=== PATIENT | female | born 1960 | race American Indian/Alaskan Native ===

== ENCOUNTER 2019-03-30 03:36 | Emergency (ER) | payer MEDICAID ==
[2019-03-30 05:14] LABS: Basophils % (Auto) 0.8 % (0.0-1.8); Eosinophils % (Auto) 0.5 % (0.0-4.3); Hematocrit 41.9 % (30.3-42.9); Hemoglobin 14.2 gm/dl (10.1-14.3); Lymphocytes # (Auto) 1.4 K/mm3 (1.2-5.4); Lymphocytes % (Auto) 31.1 % (13.4-35.0); Mean Corpuscular HGB Conc 34 % (30-34); Mean Corpuscular Volume 96 fl (79-97); Monocytes # (Auto) 0.1 K/mm3 (0.0-0.8); Monocytes % (Auto) 3.1 % (0.0-7.3); Platelet Count 199 K/mm3 (140-440); Red Blood Count 4.35 M/mm3 (3.65-5.03); Red Cell Distribution Width 16.3 % (13.2-15.2)
[2019-03-30 05:21] LABS: Bilirubin,Urine NEG (Negative); Blood,Urine NEG (Negative); Color,Urine Yellow (Yellow); Protein,Urine <15 mg/dL mg/dL (Negative); Urobilinogen,Urine < 2.0 mg/dL (<2.0)
[2019-03-30 05:26] LABS: BUN/Creatinine Ratio 16; Blood Urea Nitrogen 16 mg/dL (7-17); Calcium 9.1 mg/dL (8.4-10.2); Hemolysis Index 219
[2019-03-30 05:28] LABS: Amphetamine Screen,Urine PRESUMPTIVE NEGATIVE; Benzodiazepines Screen,Urine PRESUMPTIVE NEGATIVE; Cocaine Screen,Urine PRESUMPTIVE NEGATIVE; Methadone Screen,Urine PRESUMPTIVE NEGATIVE; Opiate Screen,Urine PRESUMPTIVE NEGATIVE
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
[2019-03-30] MEDS ORDERED: DILANTIN PO ONE (05:34)
[2019-03-30 05:43] LABS: Cannabinoid Screen,Urine PRESUMPTIVE POSITIVE
[2019-03-30] MEDS: SYNTHROID PO SCH (11:00)
--- NOTE | 2019-03-30 15:16 | Emergency Department Report ---
Blank Doc - Documentation Documentation: RN reports pt fell onto the floor from bedside commode. Now has hematoma to f orehead. No mental status change. Will obtain CT Head.
--- NOTE | 2019-03-30 16:04 | Cat Scan Report ---
PROCEDURE: CT HEAD/BRAIN WO CON TECHNIQUE: Computerized tomography of the head was performed without contrast material. CT DOSE LENGTH PRODUCT: 1046.1 mGycm HISTORY: fall COMPARISONS: None . FINDINGS: Nonspecific 6 mm x 39 mm fatty lesion in right frontal scalp region suggestive of lipoma. Right vertex region scalp swelling with small scalp hematoma. Adjacent skull appears intact. No acute air-fluid level visualized in the included air-filled sinuses. Bone windows demonstrate no acute fracture. The brain is without mass, mass effect, hemorrhage, or acute infarct. There is no extra-axial intracranial bleed, brain bleed, or midline shift. The ventricles and sulci are age-appropriate. 

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
[2019-03-31] MEDS: SYNTHROID PO SCH (07:06)
[2019-03-31 12:35] LABS: Bacteria,Urine 1+ /HPF (Negative); Bilirubin,Urine NEG (Negative); Blood,Urine SM (Negative); Color,Urine Yellow (Yellow); Protein,Urine <15 mg/dL mg/dL (Negative); Urobilinogen,Urine < 2.0 mg/dL (<2.0)
[2019-03-31 12:42] LABS: Amphetamine Screen,Urine PRESUMPTIVE NEGATIVE; Benzodiazepines Screen,Urine PRESUMPTIVE NEGATIVE; Cocaine Screen,Urine PRESUMPTIVE NEGATIVE; Methadone Screen,Urine PRESUMPTIVE NEGATIVE; Opiate Screen,Urine PRESUMPTIVE NEGATIVE
[2019-03-31 13:03] LABS: Cannabinoid Screen,Urine PRESUMPTIVE POSITIVE
[2019-04-01] MEDS: SYNTHROID PO SCH (06:54)
[2019-04-01 13:56] VITALS: BP 138/86
== END 2019-04-01 16:45 ==
LOC: EEVIPCON 03:36 → ED 03:36
DX: S00.83XA Contusion of other part of head, initial encounter (principal); G40.909 Epilepsy, unspecified, not intractable, without status epilepticus; F31.9 Bipolar disorder, unspecified; J45.909 Unspecified asthma, uncomplicated; F17.200 Nicotine dependence, unspecified, uncomplicated; F12.10 Cannabis abuse, uncomplicated; W19.XXXA Unspecified fall, initial encounter; Y93.89 Activity, other specified; Y92.89 Other specified places as the place of occurrence of the external cause; Y99.8 Other external cause status
CPT/HCPCS: 36415; 70450; 80048; 80164; 80185; 80307; 81001; 82962; 85025; 87086; 99285; G0480; 80320

== ENCOUNTER 2019-04-13 10:35 | Emergency (ER) | payer MEDICAID ==
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
[2019-04-13] MEDS ORDERED: HALDOL IM PRN (11:59)
[2019-04-13] MEDS ORDERED: ATIVAN IM PRN (11:59)
[2019-04-13] MEDS ORDERED: BENADRYL IM PRN (11:59)
[2019-04-13 13:48] LABS: Alanine Aminotransferase 10 units/L (7-56); Albumin 3.5 g/dL (3.9-5); BUN/Creatinine Ratio 14; Blood Urea Nitrogen 11 mg/dL (7-17); Calcium 8.5 mg/dL (8.4-10.2); Hemolysis Index 18
[2019-04-13 13:55] LABS: Free T4 (Free Thyroxine) 0.45 ng/dL (0.76-1.46)
[2019-04-13 14:11] LABS: Basophils % (Auto) 0.7 % (0.0-1.8); Eosinophils % (Auto) 0.4 % (0.0-4.3); Hematocrit 35.7 % (30.3-42.9); Hemoglobin 11.8 gm/dl (10.1-14.3); Lymphocytes # (Auto) 1.2 K/mm3 (1.2-5.4); Lymphocytes % (Auto) 28.2 % (13.4-35.0); Mean Corpuscular HGB Conc 33 % (30-34); Mean Corpuscular Volume 98 fl (79-97); Monocytes # (Auto) 0.4 K/mm3 (0.0-0.8); Monocytes % (Auto) 9.9 % (0.0-7.3); Platelet Count 189 K/mm3 (140-440); Red Blood Count 3.64 M/mm3 (3.65-5.03); Red Cell Distribution Width 16.5 % (13.2-15.2)
[2019-04-13 16:16] LABS: Bilirubin,Urine NEG (Negative); Blood,Urine NEG (Negative); Color,Urine Yellow (Yellow); Mucus,Urine FEW /HPF; Protein,Urine <15 mg/dL mg/dL (Negative); Urobilinogen,Urine < 2.0 mg/dL (<2.0)
[2019-04-13 16:34] LABS: Amphetamine Screen,Urine PRESUMPTIVE NEGATIVE; Benzodiazepines Screen,Urine PRESUMPTIVE NEGATIVE; Cocaine Screen,Urine PRESUMPTIVE NEGATIVE; Methadone Screen,Urine PRESUMPTIVE NEGATIVE; Opiate Screen,Urine PRESUMPTIVE NEGATIVE
[2019-04-13 17:01] LABS: Cannabinoid Screen,Urine PRESUMPTIVE POSITIVE
[2019-04-13] MEDS ORDERED: LEVAQUIN PO SCH (18:00)
[2019-04-14] MEDS ORDERED: SYNTHROID PO SCH (06:00)
[2019-04-14 09:13] VITALS: BP 134/70
--- NOTE | 2019-04-14 10:39 | Cat Scan Report ---
PROCEDURE: CT HEAD/BRAIN WO CON TECHNIQUE: A noncontrast CT of the head was performed. HISTORY: ams, psychosis COMPARISON: 03/30/2019 FINDINGS: There is no acute intracranial hemorrhage. There is no brain edema, mass effect or midline shift. Ventricular size is appropriate for brain volume. There is no abnormal extra-axial fluid collections. There is no skull fracture seen. There is an unchanged right frontal scalp lipoma. The visualized paranasal sinuses are clear. IMPRESSION: There is no acute intracranial abnormality seen. This document is electronically signed by Karly Townsend MD., April 14 2019 10:38:16 AM ET
--- NOTE | 2019-04-14 11:42 | Consultation ---
History of Present Illness - Reason for Consult Consult date: 04/14/19 Reason for consult: Mental Health Evaluation Requesting physician: CELIA VARGAS - Chief Complaint Chief complaint: "I'm having issues with my family" - History of Present Psychiatric Illness 58 y.o. AA female who presented to the ER for bizarre behavior. Today the patient was calm, but somewhat confused initially during the assessment. She stated something about her son and his told her to come to the ER. She could not elaborate more about the situation when asked. Per collateral information from the patient's other son Valdemar Carl at [phone], he stated that his mother is somewhat homeless. He stated that she was residing with his brother and [id number], but something happened, so now he's trying to find his mother somewhere to live. He stated that he currently is residing in a hotel. He stated that his mother has a hx of "seizures and stress issues." The patient denies SI/HI's and AVH's. She denies erratic sleep and a poor appetite. She denies recreational drug use and alcohol consumption (etoh). The patient would not conform or deny a mental health dx when asked. Medications and Allergies Allergies Allergy/AdvReac Type Severity Reaction Status Date / Time No Known Allergies Allergy Verified 04/13/19 10:37 Home Medications Medication Instructions Recorded Confirmed Last Taken Type Divalproex ER [DepaKOTE ER] 1,000 mg PO BID 03/30/19 03/30/19 Unknown History Levothyroxine [Synthroid] 100 mcg PO QAM 03/30/19 03/30/19 Unknown History OLANzapine [ZyPREXA] 10 mg PO QHS 03/30/19 03/30/19 Unknown History Active Meds: Active Medications Diphenhydramine HCl (Benadryl) 50 mg IM Q6H PRN PRN Reason: Agitation Levofloxacin (Levaquin) 250 mg PO Q24H [facility] Last Admin: 04/13/19 20:00 Dose: 250 mg Documented by: Levothyroxine Sodium (Synthroid) 100 mcg PO QAM@0600 [facility] Lorazepam (Ativan) 2 mg IM Q8H PRN PRN Reason: Agitation Last Admin: 04/13/19 12:07 Dose: 2 mg Documented by: Past psychiatric history - Past Medical History Past Medical History: seizures Past Surgical History: No surgical history - past Psychiatric treatment and history psychiatric treatment history: Inpatientpsy services in the past. Denies a fam psy services. - Social History Social history: lives with family Mental Status Exam - Vital signs Last Vital Signs Temp 97.6 F 04/14/19 09:11 Pulse 69 04/14/19 09:11 Resp 18 04/14/19 09:11 BP 134/70 04/14/19 09:11 Pulse Ox 100 04/14/19 09:11 - Exam Narrative exam: MSE: Appearance: calm Behavior: regular eye contact Speech: regular rate and tone Mood: "okay" Affect: congruent to mood Thought Process: circumstantial Thought Content: denies SI/HI's and AVH's Motor Activity: ambulatory Cognition: slight confusion Insight: variable to fair Judgment: fair Results Result Diagrams: 04/13/19 13:15 04/13/19 13:15 Abnormal lab results 04/13/19 04/13/19 04/13/19 Range/Units 13:15 13:15 13:15 WBC 4.3 L (4.5-11.0) K/mm3 RBC 3.64 L (3.65-5.03) M/mm3 MCV 98 H (79-97) fl MCH 33 H (28-32) pg RDW 16.5 H (13.2-15.2) % [place] % (Auto) 9.9 H (0.0-7.3) % Potassium 3.4 L (3.6-5.0) mmol/L Glucose 109 H (65-100) mg/dL Albumin 3.5 L (3.9-5) g/dL TSH 22.060 H (0.270-4.200) mlU/mL Free T4 0.45 L (0.76-1.46) ng/dL Urine WBC (Auto) (0.0-6.0) /HPF Salicylates (2.8-20.0) mg/dL Acetaminophen (10.0-30.0) ug/mL Phenytoin (10.0-20.0) ug/mL Valproic Acid (50-100) ug/mL 04/13/19 04/13/19 04/13/19 Range/Units 13:15 13:15 16:03 WBC (4.5-11.0) K/mm3 RBC (3.65-5.03) M/mm3 MCV (79-97) fl MCH (28-32) pg RDW (13.2-15.2) % [place] % (Auto) (0.0-7.3) % Potassium (3.6-5.0) mmol/L Glucose (65-100) mg/dL Albumin (3.9-5) g/dL TSH (0.270-4.200) mlU/mL Free T4 (0.76-1.46) ng/dL Urine WBC (Auto) 23.0 H (0.0-6.0) /HPF Salicylates < 0.3 L (2.8-20.0) mg/dL Acetaminophen < 5.0 L (10.0-30.0) ug/mL Phenytoin (10.0-20.0) ug/mL Valproic Acid < 2.8 L (50-100) ug/mL 04/14/19 Range/Units 08:10 WBC (4.5-11.0) K/mm3 RBC (3.65-5.03) M/mm3 MCV (79-97) fl MCH (28-32) pg RDW (13.2-15.2) % [place] % (Auto) (0.0-7.3) % Potassium (3.6-5.0) mmol/L Glucose (65-100) mg/dL Albumin (3.9-5) g/dL TSH (0.270-4.200) mlU/mL Free T4 (0.76-1.46) ng/dL Urine WBC (Auto) (0.0-6.0) /HPF Salicylates (2.8-20.0) mg/dL Acetaminophen (10.0-30.0) ug/mL Phenytoin 0.9 L (10.0-20.0) ug/mL Valproic Acid (50-100) ug/mL All other labs normal. Assessment and Plan Assessment and plan: Impression: R/O Delirium. Family Dynamic issues. Today the patient was calm during the assessment. Medical: UTI Recommendation/Plan: Case Mgmt involvement, the patient may need assistance with placement. Informed the patient's assigned nurse that the patient has a hx of seizures. Psy sign off. Dispo: The patient can follow uo with [facility] for outpatient psy services. Staffed with Dr. Papito Ramirez.
[2019-04-14] MEDS ORDERED: DILANTIN PO SCH (22:00)
== END 2019-04-14 17:02 | disposition left against medical advice (07) ==
LOC: ED 10:35
DX: F20.9 Schizophrenia, unspecified (principal); E11.9 Type 2 diabetes mellitus without complications; J45.909 Unspecified asthma, uncomplicated; Z87.891 Personal history of nicotine dependence; Z79.899 Other long term (current) drug therapy
CPT/HCPCS: 36415; 70450; 80053; 80164; 80185; 80307; 81001; 84439; 84443; 85025; 87076; 87086; 87186; 96372; 99285; G0480; J1200; J1630; J2060; 80320

== ENCOUNTER 2020-08-04 10:32 | Emergency (ER) | payer MEDICAID ==
[2020-08-04 10:59] VITALS: BP 163/97
--- NOTE | 2020-08-04 12:19 | Emergency Department Report ---
ED General Adult HPI - General Chief complaint: Medical Clearance Stated complaint: BACK PAIN, DIZZINESS Time Seen by Provider: 08/04/20 11:45 Source: patient Mode of arrival: Ambulatory Limitations: No Limitations - Related Data Previous Rx's Medication Instructions Recorded Last Taken Type Ciprofloxacin HCl [Ciprofloxacin 500 mg PO Q12HR #10 tab 07/06/20 Unknown Rx TAB] levETIRAcetam [Keppra] 750 mg PO BID #60 oral.liqd 07/06/20 Unknown Rx Divalproex ER [Depakote ER] 1,000 mg PO BID 60 Days #60 tab 08/04/20 Unknown Rx Gabapentin 300 mg PO TID 30 Days #90 cap 08/04/20 Unknown Rx Levothyroxine [Synthroid] 100 mcg PO QAM 30 Days #30 tab 08/04/20 Unknown Rx OLANzapine [ZyPREXA] 2.5 mg PO HS 30 Days #30 tab 08/04/20 Unknown Rx hydrALAZINE [Apresoline TAB] 25 mg PO Q8HR #90 tablet 08/04/20 Unknown Rx Allergies Allergy/AdvReac Type Severity Reaction Status Date / Time No Known Allergies Allergy Verified 04/13/19 10:37 ED Review of Systems ROS: Stated complaint: BACK PAIN, DIZZINESS Other details as noted in HPI ED Past Medical Hx - Past Medical History Hx Diabetes: Yes Hx Seizures: Yes Hx Psychiatric Treatment: Yes (schizophrenia) Hx Asthma: Yes - Surgical History Additional Surgical History: Patient states she cannot remember what sx - Social History Smoking Status: Never Smoker - Medications Home Medications: Home Medications Medication Instructions Recorded Confirmed Last Taken Type Ciprofloxacin HCl [Ciprofloxacin 500 mg PO Q12HR #10 tab 07/06/20 Unknown Rx TAB] levETIRAcetam [Keppra] 750 mg PO BID #60 oral.liqd 07/06/20 Unknown Rx Divalproex ER [Depakote ER] 1,000 mg PO BID 60 Days #60 tab 08/04/20 Unknown Rx Gabapentin 300 mg PO TID 30 Days #90 cap 08/04/20 Unknown Rx Levothyroxine [Synthroid] 100 mcg PO QAM 30 Days #30 tab 08/04/20 Unknown Rx OLANzapine [ZyPREXA] 2.5 mg PO HS 30 Days #30 tab 08/04/20 Unknown Rx hydrALAZINE [Apresoline TAB] 25 mg PO Q8HR #90 tablet 08/04/20 Unknown Rx ED Physical Exam - General Limitations: No Limitations ED Course Vital Signs 08/04/20 10:56 Temperature 98.0 F Pulse Rate 81 Respiratory 18 Rate Blood Pressure 163/97 O2 Sat by Pulse 97 Oximetry Critical care attestation.: If time is entered above; I have spent that time in minutes in the direct care of this critically ill patient, excluding procedure time. ED Disposition Clinical Impression: Encounter for medication refill, T2DM (type 2 diabetes mellitus), Hypothyroidism Disposition: DC- TO HOME OR SELFCARE Is pt being admited?: No Condition: Stable Instructions: Diabetes Mellitus Type 2 in Adults (ED) Prescriptions: hydrALAZINE [Apresoline TAB] 25 mg PO Q8HR #90 tablet Divalproex ER [Depakote ER] 1,000 mg PO BID 60 Days #60 tab Gabapentin 300 mg PO TID 30 Days #90 cap Levothyroxine [Synthroid] 100 mcg PO QAM 30 Days #30 tab OLANzapine [ZyPREXA] 2.5 mg PO HS 30 Days #30 tab
== END 2020-08-04 13:43 | disposition home or self-care (01) ==
LOC: ED 10:32
DX: E11.69 Type 2 diabetes mellitus with other specified complication (principal); E03.9 Hypothyroidism, unspecified; Z86.69 Personal history of other diseases of the nervous system and sense organs; F20.9 Schizophrenia, unspecified; J45.909 Unspecified asthma, uncomplicated; Z79.899 Other long term (current) drug therapy
CPT/HCPCS: 99281

== ENCOUNTER 2021-09-16 10:17 | Emergency (ER) | payer MEDICAID ==
[2021-09-16] MEDS ORDERED: DIVALPROEX DR 500 MG TAB PO ONE (10:58)
[2021-09-16] MEDS ORDERED: LORazepam 2 MG/ML VIAL IV ONE (12:40)
[2021-09-16 13:13] LABS: BUN/Creatinine Ratio TNR; Blood Urea Nitrogen TNR mg/dL (7-17); Calcium TNR mg/dL (8.4-10.2)
[2021-09-16 13:14] LABS: Hemolysis Index TNR
[2021-09-16] MEDS ORDERED: PHENYTOIN 1,000 MG in SODIUM CHLORIDE 0.9% 250ML 250 ML IV ONE (14:17)
--- NOTE | 2021-09-16 14:38 | Emergency Department Report ---
<ALLISON FUENTES - Last Filed: 09/16/21 14:32> ED Seizure HPI - General Chief Complaint: Seizure Stated Complaint: seizure Time Seen by Provider: 09/16/21 10:58 Source: patient Mode of arrival: Stretcher Limitations: No Limitations - History of Present Illness Initial Comments: Patient is a 61-year-old F [place]ian female with past medical history of seizures who is presenting with seizure prior to arrival. Patient still slightly postictal on arrival. Patient states she does take Dilantin and Depakote has been out of her Dilantin. States she does not believe she has missed any doses of her Depakote. Patient states she does not feel any pain in her tongue there was no urinary incontinence. Mild headache. - Related Data Previous Rx's Medication Instructions Recorded Last Taken Type Ciprofloxacin HCl [Ciprofloxacin 500 mg PO Q12HR #10 tab 07/06/20 Unknown Rx TAB] levETIRAcetam [Keppra] 750 mg PO BID #60 oral.liqd 07/06/20 Unknown Rx Divalproex ER [Depakote ER] 1,000 mg PO BID 60 Days #60 tab 08/04/20 Unknown Rx Gabapentin 300 mg PO TID 30 Days #90 cap 08/04/20 Unknown Rx OLANzapine [ZyPREXA] 2.5 mg PO HS 30 Days #30 tab 08/04/20 Unknown Rx hydrALAZINE [Apresoline TAB] 25 mg PO Q8HR #90 tablet 08/04/20 Unknown Rx Divalproex ER [DepaKOTE ER] 500 mg PO BID #60 tablet 09/16/21 Unknown Rx Levothyroxine [Synthroid] 100 mcg PO QAM 30 Days #30 tab 09/16/21 Unknown Rx Phenytoin [Dilantin] 100 mg PO Q8HR #90 capsule 09/16/21 Unknown Rx Allergies Allergy/AdvReac Type Severity Reaction Status Date / Time No Known Allergies Allergy Verified 04/13/19 10:37 ED Review of Systems Comment: All other systems reviewed and negative ED Past Medical Hx - Past Medical History Hx Diabetes: Yes Hx Seizures: Yes Hx Psychiatric Treatment: Yes (schizophrenia) Hx Asthma: Yes - Surgical History Additional Surgical History: Patient states she cannot remember what sx - Social History Smoking Status: Never Smoker - Medications Home Medications: Home Medications Medication Instructions Recorded Confirmed Last Taken Type Ciprofloxacin HCl [Ciprofloxacin 500 mg PO Q12HR #10 tab 07/06/20 Unknown Rx TAB] levETIRAcetam [Keppra] 750 mg PO BID #60 oral.liqd 07/06/20 Unknown Rx Divalproex ER [Depakote ER] 1,000 mg PO BID 60 Days #60 tab 08/04/20 Unknown Rx Gabapentin 300 mg PO TID 30 Days #90 cap 08/04/20 Unknown Rx OLANzapine [ZyPREXA] 2.5 mg PO HS 30 Days #30 tab 08/04/20 Unknown Rx hydrALAZINE [Apresoline TAB] 25 mg PO Q8HR #90 tablet 08/04/20 Unknown Rx Divalproex ER [DepaKOTE ER] 500 mg PO BID #60 tablet 09/16/21 Unknown Rx Levothyroxine [Synthroid] 100 mcg PO QAM 30 Days #30 tab 09/16/21 Unknown Rx Phenytoin [Dilantin] 100 mg PO Q8HR #90 capsule 09/16/21 Unknown Rx ED Physical Exam - General Limitations: No Limitations General appearance: alert, in no apparent distress, postictal - Head Head exam: Present: atraumatic, normocephalic - Eye Eye exam: Present: normal appearance - ENT ENT exam: Present: mucous membranes moist - Neck Neck exam: Present: normal inspection - Respiratory Respiratory exam: Present: normal lung sounds bilaterally. Absent: respiratory distress - Cardiovascular Cardiovascular Exam: Present: regular rate, normal rhythm. Absent: systolic murmur, diastolic murmur, rubs, gallop - GI/Abdominal GI/Abdominal exam: Present: soft, normal bowel sounds - Extremities Exam Extremities exam: Present: normal inspection - Back Exam Back exam: Present: normal inspection - Neurological Exam Neurological exam: Present: alert, oriented X3 - Psychiatric Psychiatric exam: Present: normal affect, normal mood - Skin Skin exam: Present: warm, dry, intact, normal color. Absent: rash ED Course - Reevaluation(s) Reevaluation #1: 09/16/21 14:34 Patient was recovering at almost returned to her baseline she had got up and w ent to the bathroom and then had a seizure. Patient was lowered to the ground by nursing staff. No evidence of any injury. Given 1 of Ativan. Approximately 15 to 20 minutes after this the patient's Dilantin level did return and was low. Patient will be loaded with Dilantin. We will continue to monitor the patient ED Medical Decision Making - Lab Data Result diagrams: 09/16/21 12:06 Lab Results 09/16/21 09/16/21 Range/Units 12:06 12:06 Sodium TNR Potassium TNR Chloride TNR Carbon Dioxide TNR Anion Gap TNR BUN TNR Creatinine TNR Estimated GFR TNR BUN/Creatinine Ratio TNR Glucose TNR Calcium TNR Phenytoin 0.8 L (10.0-20.0) ug/mL - Medical Decision Making Patient is a 61-year-old F [place]ian female who is here for seizures. Patient has a subtherapeutic Dilantin level and admits that he is she has not been using her Depakote. Patient loaded with a gram of Dilantin. Refills will be given. Will monitor patient if she is no longer postictal. Patient should be stable for discharge. ED Disposition Disposition: 01 HOME / SELF CARE / HOMELESS Is pt being admited?: No Does the pt Need Aspirin: No Condition: Stable Instructions: Epilepsy, [id number] Prescriptions: Divalproex ER [DepaKOTE ER] 500 mg PO BID #60 tablet Phenytoin [Dilantin] 100 mg PO Q8HR #90 capsule Levothyroxine [Synthroid] 100 mcg PO QAM 30 Days #30 tab Referrals: PRIMARY CARE, [Primary Care Provider] - 3-5 Days <ROGELIO CARL - Last Filed: 09/16/21 18:38> ED Review of Systems ROS: Stated complaint: seizure Other details as noted in HPI ED Course Vital Signs 09/16/21 10:47 Temperature 99.1 F Pulse Rate 71 Respiratory 16 Rate Blood Pressure 130/82 [Left] O2 Sat by Pulse 98 Oximetry ED Medical Decision Making - Lab Data Result diagrams: 09/16/21 12:06 09/16/21 12:06 - Medical Decision Making Addendum by Rogelio Carl MD Reevaluation of the patient at 6:15 PM shows that she is alert and oriented x3 she is able to answer questions appropriately. She is no longer postictal. She will be discharged in the care of her family. Critical care attestation.: If time is entered above; I have spent that time in minutes in the direct care of this critically ill patient, excluding procedure time.
[2021-09-16 16:56] LABS: Hematocrit 36.3 % (30.3-42.9); Hemoglobin 11.6 gm/dl (10.1-14.3); Mean Corpuscular HGB Conc 32 % (30-34); Mean Corpuscular Volume 97 fl (79-97); Platelet Count 214 K/mm3 (140-440); Red Blood Count 3.74 M/mm3 (3.65-5.03); Red Cell Distribution Width 14.8 % (13.2-15.2)
[2021-09-17 12:07] VITALS: BP 134/79
== END 2021-09-17 12:07 | disposition home or self-care (01) ==
LOC: ED 10:17
DX: R56.9 Unspecified convulsions (principal); E11.9 Type 2 diabetes mellitus without complications; F20.9 Schizophrenia, unspecified; J45.909 Unspecified asthma, uncomplicated; Z79.899 Other long term (current) drug therapy
CPT/HCPCS: 36415; 80048; 80185; 85025; 96365; 96366; 96375; 99284; J1165; J7050

== ENCOUNTER 2021-10-31 10:20 | Emergency (ER) | payer MEDICAID ==
[2021-10-31 11:38] VITALS: BP 179/96
[2021-10-31] MEDS ORDERED: cloNIDine 0.1 MG TAB PO ONE (13:23)
--- NOTE | 2021-10-31 13:25 | Emergency Department Report ---
ED General Adult HPI - General Chief complaint: High BP Stated complaint: BLOOD PRESSURE HIGH Time Seen by Provider: 10/31/21 11:47 Source: patient Mode of arrival: Ambulatory Limitations: No Limitations - History of Present Illness Initial comments: 29 DUE TO THE SON WAS IN MSE 7 AND THE PATIENT IS SPEAKING WITH THE NURSE REGARDING THE SOCIAL SERVICE ISSUES FROM HOME. THE PATIENT STATES THEY CURRENTLY LIVE IN A HOTEL AND ARE GETTING READY TO BE EVICTED AND THATS WHY THEY CAME TO THE ER TODAY. -: month(s) - Related Data Previous Rx's Medication Instructions Recorded Last Taken Type Ciprofloxacin HCl [Ciprofloxacin 500 mg PO Q12HR #10 tab 07/06/20 Unknown Rx TAB] levETIRAcetam [Keppra] 750 mg PO BID #60 oral.liqd 07/06/20 Unknown Rx Divalproex ER [Depakote ER] 1,000 mg PO BID 60 Days #60 tab 08/04/20 Unknown Rx Gabapentin 300 mg PO TID 30 Days #90 cap 08/04/20 Unknown Rx OLANzapine [ZyPREXA] 2.5 mg PO HS 30 Days #30 tab 08/04/20 Unknown Rx hydrALAZINE [Apresoline TAB] 25 mg PO Q8HR #90 tablet 08/04/20 Unknown Rx Divalproex ER [DepaKOTE ER] 500 mg PO BID #60 tablet 09/16/21 Unknown Rx Levothyroxine [Synthroid] 100 mcg PO QAM 30 Days #30 tab 09/16/21 Unknown Rx Phenytoin [Dilantin] 100 mg PO Q8HR #90 capsule 09/16/21 Unknown Rx Allergies Allergy/AdvReac Type Severity Reaction Status Date / Time No Known Allergies Allergy Verified 04/13/19 10:37 ED Review of Systems ROS: Stated complaint: BLOOD PRESSURE HIGH Other details as noted in HPI Constitutional: denies: chills, fever Eyes: denies: eye pain, eye discharge, vision change ENT: denies: ear pain, throat pain Respiratory: denies: cough, shortness of breath, wheezing Cardiovascular: denies: chest pain, palpitations Endocrine: no symptoms reported Gastrointestinal: denies: abdominal pain, nausea, diarrhea Genitourinary: denies: urgency, dysuria, discharge Musculoskeletal: denies: back pain, joint swelling, arthralgia Skin: denies: rash, lesions Neurological: denies: headache, weakness, paresthesias Psychiatric: denies: anxiety, depression Hematological/Lymphatic: denies: easy bleeding, easy bruising ED Past Medical Hx - Past Medical History Hx Diabetes: Yes Hx Seizures: Yes Hx Psychiatric Treatment: Yes (schizophrenia) Hx Asthma: Yes - Surgical History Additional Surgical History: Patient states she cannot remember what sx - Social History Smoking Status: Never Smoker - Medications Home Medications: Home Medications Medication Instructions Recorded Confirmed Last Taken Type Ciprofloxacin HCl [Ciprofloxacin 500 mg PO Q12HR #10 tab 07/06/20 Unknown Rx TAB] levETIRAcetam [Keppra] 750 mg PO BID #60 oral.liqd 07/06/20 Unknown Rx Divalproex ER [Depakote ER] 1,000 mg PO BID 60 Days #60 tab 08/04/20 Unknown Rx Gabapentin 300 mg PO TID 30 Days #90 cap 08/04/20 Unknown Rx OLANzapine [ZyPREXA] 2.5 mg PO HS 30 Days #30 tab 08/04/20 Unknown Rx hydrALAZINE [Apresoline TAB] 25 mg PO Q8HR #90 tablet 08/04/20 Unknown Rx Divalproex ER [DepaKOTE ER] 500 mg PO BID #60 tablet 09/16/21 Unknown Rx Levothyroxine [Synthroid] 100 mcg PO QAM 30 Days #30 tab 09/16/21 Unknown Rx Phenytoin [Dilantin] 100 mg PO Q8HR #90 capsule 09/16/21 Unknown Rx ED Physical Exam - General Limitations: No Limitations General appearance: alert, in no apparent distress - Head Head exam: Present: atraumatic, normocephalic - Eye Eye exam: Present: normal appearance - ENT ENT exam: Present: mucous membranes moist - Neck Neck exam: Present: normal inspection - Respiratory Respiratory exam: Present: normal lung sounds bilaterally. Absent: respiratory distress - Cardiovascular Cardiovascular Exam: Present: regular rate, normal rhythm. Absent: systolic murmur, diastolic murmur, rubs, gallop - GI/Abdominal GI/Abdominal exam: Present: soft, normal bowel sounds - Extremities Exam Extremities exam: Present: normal inspection - Back Exam Back exam: Present: normal inspection - Neurological Exam Neurological exam: Present: alert, oriented X3 - Psychiatric Psychiatric exam: Present: normal affect, normal mood - Skin Skin exam: Present: warm, dry, intact, normal color. Absent: rash ED Course Vital Signs 10/31/21 11:29 Temperature 98.0 F Pulse Rate 74 Respiratory 18 Rate Blood Pressure 179/96 O2 Sat by Pulse 100 Oximetry - Reevaluation(s) Reevaluation #1: 10/31/21 13:24 clonidne given , vss no distress, pt refused to stay for social consult Critical care attestation.: If time is entered above; I have spent that time in minutes in the direct care of this critically ill patient, excluding procedure time. ED Disposition Clinical Impression: Uncontrolled hypertension, Medication refill Disposition: HOME / SELF CARE / HOMELESS Is pt being admited?: No Does the pt Need Aspirin: No Condition: Stable Instructions: Hypertension (ED), Preventing Hypertension, Hypertension, Adult, [id number] Referrals: PRIMARY CARE, [Primary Care Provider] - 3-5 Days
== END 2021-10-31 13:30 | disposition home or self-care (01) ==
LOC: ED 10:20
DX: I10 Essential (primary) hypertension (principal); E11.8 Type 2 diabetes mellitus with unspecified complications; R56.9 Unspecified convulsions; F20.9 Schizophrenia, unspecified; Z76.0 Encounter for issue of repeat prescription; Z98.890 Other specified postprocedural states; Z79.899 Other long term (current) drug therapy
CPT/HCPCS: 99282

== ENCOUNTER 2022-01-02 14:00 | Inpatient (IN) | payer MEDICAID ==
[2022-01-02] MEDS ORDERED: levETIRAcetam 1000 MG/NS 0.75% 1,000 MG/100 ML BAG IV ONE (14:47)
[2022-01-02] MEDS ORDERED: LORazepam 2 MG/ML VIAL ONE (15:16)
--- NOTE | 2022-01-02 15:16 | Emergency Department Report ---
HPI - General Chief Complaint: Seizure Time Seen by Provider: 01/02/22 14:46 - HPI HPI: Room 21 The patient is a 61-year-old female present with a chief complaint of jaw pain. Patient states she believes she had a seizure approximate 3 hours ago stating she woke up and her jaw was hurting. Patient also has a headache. Patient has a history of seizures. ED Past Medical Hx - Past Medical History Hx Diabetes: Yes Hx Seizures: Yes Hx Psychiatric Treatment: Yes (schizophrenia) Hx Asthma: Yes - Surgical History Additional Surgical History: Patient states she cannot remember what sx - Family History Family history: no significant - Social History Smoking Status: Unknown if ever smoked Substance Use Type: None - Medications Home Medications: Home Medications Medication Instructions Recorded Confirmed Last Taken Type Ciprofloxacin HCl [Ciprofloxacin 500 mg PO Q12HR #10 tab 07/06/20 Unknown Rx TAB] Divalproex ER [Depakote ER] 1,000 mg PO BID 60 Days #60 tab 08/04/20 Unknown Rx Gabapentin 300 mg PO TID 30 Days #90 cap 08/04/20 Unknown Rx OLANzapine [ZyPREXA] 2.5 mg PO HS 30 Days #30 tab 08/04/20 Unknown Rx hydrALAZINE [Apresoline TAB] 25 mg PO Q8HR #90 tablet 08/04/20 Unknown Rx Levothyroxine [Synthroid] 100 mcg PO QAM 30 Days #30 tab 09/16/21 Unknown Rx Phenytoin [Dilantin] 100 mg PO Q8HR #90 capsule 09/16/21 Unknown Rx Divalproex ER [Depakote ER] 500 mg PO BID #60 tablet 01/02/22 Unknown Rx levETIRAcetam [Keppra] 750 mg PO BID #60 oral.liqd 01/02/22 Unknown Rx ED Review of Systems ROS: Stated complaint: SEIZURE Other details as noted in HPI Constitutional: no symptoms reported Eyes: denies: eye pain ENT: other (Jaw pain) Respiratory: no symptoms reported Cardiovascular: denies: chest pain Endocrine: no symptoms reported Gastrointestinal: denies: abdominal pain Genitourinary: denies: dysuria Musculoskeletal: denies: back pain Neurological: headache Physical Exam - Physical Exam Vital Signs: Vital Signs 01/02/22 01/02/22 01/02/22 04:56 14:01 14:18 Temperature 98.3 F Pulse Rate 61 Respiratory 14 Rate Blood Pressure 126/94 126/94 Blood Pressure 163/87 [Left] O2 Sat by Pulse 94 93 Oximetry 01/02/22 01/02/22 01/02/22 14:21 14:25 14:31 Temperature Pulse Rate 73 88 65 Respiratory 17 18 10 L Rate Blood Pressure 99/72 89/62 89/62 Blood Pressure [Left] O2 Sat by Pulse 90 76 L 100 Oximetry 01/02/22 01/02/22 14:35 14:40 Temperature Pulse Rate 59 L 59 L Respiratory 14 12 Rate Blood Pressure 89/62 122/76 Blood Pressure [Left] O2 Sat by Pulse 89 Oximetry Physical Exam: GENERAL: The patient is well-developed well-nourished female lying on stretcher not appearing to be in acute distress. [] HEENT: Normocephalic. Hematoma to the right forehead. Extraocular motions are intact. Patient has moist mucous membranes. NECK: Supple. Trachea midline CHEST/LUNGS: Clear to auscultation. There is no respiratory distress noted. HEART/CARDIOVASCULAR: Regular. There is no tachycardia. There is no gallop rub or murmur. ABDOMEN: Abdomen is soft, nontender. Patient has normal bowel sounds. There is no abdominal distention. SKIN: There is no rash. There is no edema. There is no diaphoresis. NEURO: The patient is awake, alert, and oriented. The patient is cooperative. The patient has no focal neurologic deficits. The patient has normal speech. GCS 15 MUSCULOSKELETAL: There is no evidence of acute injury. ED Course Vital Signs 01/02/22 01/02/22 01/02/22 04:56 14:01 14:18 Temperature 98.3 F Pulse Rate 61 Respiratory 14 Rate Blood Pressure 126/94 126/94 Blood Pressure 163/87 [Left] O2 Sat by Pulse 94 93 Oximetry 01/02/22 01/02/22 01/02/22 14:21 14:25 14:31 Temperature Pulse Rate 73 88 65 Respiratory 17 18 10 L Rate Blood Pressure 99/72 89/62 89/62 Blood Pressure [Left] O2 Sat by Pulse 90 76 L 100 Oximetry 01/02/22 01/02/22 14:35 14:40 Temperature Pulse Rate 59 L 59 L Respiratory 14 12 Rate Blood Pressure 89/62 122/76 Blood Pressure [Left] O2 Sat by Pulse 89 Oximetry - Reevaluation(s) Reevaluation #1: 01/02/22 15:16 Patient had a seizure while in x-ray Reevaluation #2: 01/02/22 16:32 Patient complaining of headache. Hematoma observed to right side of forehead. Will obtain CT head ED Medical Decision Making - Lab Data Result diagrams: 01/02/22 15:35 01/02/22 15:35 - Radiology Data Radiology results: report reviewed (CT head, CT facial bones), image reviewed (CT head, CT facial bones) [address] [address] Cat Scan Report Signed Patient: CHYNA HERNANDEZ MR#: [id number] : 1960 Acct:[id number] Age/Sex: 61 / F ADM Date: 01/02/22 Loc: ED Attending Dr: Ordering Physician: CELIA VARGAS MD Date of Service: 01/02/22 Procedure(s): CT facial bones wo con Accession Number(s): [id number] cc: CELIA VARGAS MD CT FACIAL 01/02/2022 HISTORY: Left facial pain after seizure. FINDINGS: Images of the facial bones were obtained. Images are evaluated in the axial, coronal, and sagittal planes. There is no evidence of acute osseous injury. Paranasal sinuses are clear. Orbital structures are intact. Incidental note is made of bilateral opacification of the external auditory canals, usually due to cerumen accumulation. IMPRESSION: No acute abnormality. All CT scans at this location are performed using dose reduction to ALARA by means of automated exposure control. Signer Name: Ben Solis MD Signed: 01/02/2022 6:51 PM Workstation Name: [id number] Transcribed By: AUSTYN Dictated By: Ben Solis MD Electronically Authenticated By: Ben Solis MD Signed Date/Time: 01/02/221850 DD/ 48 TD/TT: [address] [address] Cat Scan Report Signed Patient: CHYNA HERNANDEZ MR#: [id number] : 1960 Acct:[id number] Age/Sex: 61 / F ADM Date: 01/02/22 Loc: ED Attending Dr: Ordering Physician: CELIA VARGAS MD Date of Service: 01/02/22 Procedure(s): CT head/brain wo con Accession Number(s): [id number] cc: CELIA VARGAS MD CT BRAIN: 01/02/2022 INDICATION / CLINICAL INFORMATION: Headache, seizures. COMPARISON: CT brain 07/03/2020 FINDINGS: BRAIN/INTRACRANIAL STRUCTURES: Unenhanced CT images of the brain were obtained and compared to the prior exam from 07/03/2020. There is no evidence of acute abnormality. Ventricles and sulci are within normal limits of size and shape for a patient of this age. There is no evidence of ischemic injury, hemorrhage, or mass. There are no abnormal extra-axial fluid collections. 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 EXTRACRANIAL STRUCTURES: Unremarkable. IMPRESSION: No acute abnormality. No significant change when compared to 07/03/[address] scans at this location are performed using dose reduction to ALARA by means of automated exposure control. Signer Name: Ben Solis MD Signed: 01/02/2022 6:54 PM Workstation Name: [id number] Transcribed By: AO Dictated By: Ben Solis MD Electronically Authenticated By: Ben Solis MD Signed Date/Time: 01/02/221853 DD/ 51 TD/TT: - Differential Diagnosis Seizure, closed head injury, ICH, mandible fracture, mandible contusion Critical care attestation.: If time is entered above; I have spent that time in minutes in the direct care of this critically ill patient, excluding procedure time. ED Disposition Clinical Impression: Seizure, Closed head injury, Facial contusion Disposition: 01 HOME / SELF CARE / HOMELESS Is pt being admited?: No Does the pt Need Aspirin: No Condition: Stable Instructions: Epilepsy, [id number] Additional Instructions: Return to the emergency department should you develop worsening symptoms, jaci bility to tolerate food or liquids, high fever or any other concerns Prescriptions: Divalproex ER [Depakote ER] 500 mg PO BID #60 tablet levETIRAcetam [Keppra] 750 mg PO BID #60 oral.liqd Referrals: PRIMARY MD PIERRE [Primary Care Provider] - 3-5 Days JULIA GRAY MD [Staff Physician] - 3-5 Days (Dr. Gray is a neurologist. Please follow-up with him for further evaluation if you do not already have a neurologist) Time of Disposition: 19:05
[2022-01-02 16:23] LABS: BUN/Creatinine Ratio 11; Blood Urea Nitrogen 9 mg/dL (7-17); Calcium 9.1 mg/dL (8.4-10.2); Hemolysis Index 24
[2022-01-02] MEDS ORDERED: LORazepam 2 MG/ML VIAL IV ONE (16:31)
[2022-01-02] MEDS: VALPROATE SODIUM 500 MG in SODIUM CHLORIDE 0.9% 100 ML IV ONE ×2 (16:54→18:44)
[2022-01-02 17:11] LABS: Hematocrit 47.8 % (30.3-42.9); Hemoglobin 15.9 gm/dl (10.1-14.3); Mean Corpuscular HGB Conc 33 % (30-34); Mean Corpuscular Volume 97 fl (79-97); Platelet Count 142 K/mm3 (140-440); Red Blood Count 4.95 M/mm3 (3.65-5.03); Red Cell Distribution Width 14.9 % (13.2-15.2)
--- NOTE | 2022-01-02 18:55 | Cat Scan Report ---
CT FACIAL 01/02/2022 HISTORY: Left facial pain after seizure. FINDINGS: Images of the facial bones were obtained. Images are evaluated in the axial, coronal, and s agittal planes. There is no evidence of acute osseous injury. Paranasal sinuses are clear. Orbital structures are intact. Incidental note is made of bilateral opacification of the external auditory canals, usually due to ce rumen accumulation. IMPRESSION: No acute abnormality. All CT scans at this location are performed using dose reduction to ALARA by means of automated expos ure control. Signer Name: Ben Solis MD Signed: 01/02/2022 6:51 PM Workstation Name: [id number]
--- NOTE | 2022-01-02 18:58 | Cat Scan Report ---
CT BRAIN: 01/02/2022 INDICATION / CLINICAL INFORMATION: Headache, seizures. COMPARISON: CT brain 07/03/2020 FINDINGS: BRAIN/INTRACRANIAL STRUCTURES: Unenhanced CT images of the brain were obtained and compared to the pr ior exam from 07/03/2020. There is no evidence of acute abnormality. Ventricles and sulci are within normal limits of size and shape for a patient of this age. There is no evidence of ischemic injury, hemorrhage, or mass. There are no abnormal extra-axial fluid collections. 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 EXTRACRANIAL STRUCTURES: Unremarkable. IMPRESSION: No acute abnormality. No significant change when compared to 07/03/[address] scans at this location are performed using dose reduction to ALARA by means of automated expos ure control. Signer Name: Ben Solis MD Signed: 01/02/2022 6:54 PM Workstation Name: [id number]
[2022-01-02] MEDS ORDERED: MORPHINE 2 MG/1 ML INJ IV PRN (22:08)
[2022-01-02] MEDS ORDERED: MAGNESIUM HYDROXIDE (MOM) ORAL LIQD UDC PO PRN (22:08)
[2022-01-02] MEDS ORDERED: ACETAMINOPHEN 325 MG TAB PO PRN (22:08)
[2022-01-02] MEDS ORDERED: MORPHINE 4 MG/1 ML INJ IV PRN (22:08)
[2022-01-02] MEDS ORDERED: ONDANSETRON 4 MG/2 ML INJ IV PRN (22:08)
[2022-01-02] MEDS ORDERED: DEXTROSE 50% IN WATER (25GM) 50 ML SYRINGE IV PRN (22:08)
--- NOTE | 2022-01-02 22:19 | History and Physical Report ---
History of Present Illness Date of examination: 01/02/22 Date of admission: 01/02/2022 Chief complaint: Seizure Disorder History of present illness: 61-year-old -[place]ish female brought into the emergency room today for evaluation after having seizure activity at home. Patient was said to have had seizure activity about 3 hours prior to reporting to the emergency room. She indicated that she was hurting on the right jaw and also had a headache. She cannot recall events leading to a seizure activity. Patient lives with her son at home. Patient appears very drowsy during this history and physical and cannot give a very detailed history. According to son who was by the bedside, patient was out of seizure medications for about 2 days because she ran out of prescriptions. However medication has been refilled and patient had started taking her medication as prescribed. Work-up in the emergency room today, labs were significant for hemoglobin of 15.9 and hematocrit of 47.8. CO2 of 18. Valproic acid level was subtherapeutic. Dilantin level was still pending onset during this dictation. CT scan of the head showed no acute abnormality. Patient was loaded with Keppra in the emergency room. Past History Past Medical History: diabetes, hypertension, seizures, other (Schizophrenia,Asthma) Past Surgical History: No surgical history Social history: no significant social history Family history: no significant family history Medications and Allergies Allergies Allergy/AdvReac Type Severity Reaction Status Date / Time No Known Allergies Allergy Verified 01/02/22 14:06 Home Medications Medication Instructions Recorded Confirmed Last Taken Type Ciprofloxacin HCl [Ciprofloxacin 500 mg PO Q12HR #10 tab 07/06/20 Unknown Rx TAB] Divalproex ER [Depakote ER] 1,000 mg PO BID 60 Days #60 tab 08/04/20 Unknown Rx Gabapentin 300 mg PO TID 30 Days #90 cap 08/04/20 Unknown Rx OLANzapine [ZyPREXA] 2.5 mg PO HS 30 Days #30 tab 08/04/20 Unknown Rx hydrALAZINE [Apresoline TAB] 25 mg PO Q8HR #90 tablet 08/04/20 Unknown Rx Levothyroxine [Synthroid] 100 mcg PO QAM 30 Days #30 tab 09/16/21 Unknown Rx Phenytoin [Dilantin] 100 mg PO Q8HR #90 capsule 09/16/21 Unknown Rx Divalproex ER [Depakote ER] 500 mg PO BID #60 tablet 01/02/22 Unknown Rx levETIRAcetam [Keppra] 750 mg PO BID #60 oral.liqd 01/02/22 Unknown Rx Review of Systems ROS unobtainable: due to mental status Exam - Constitutional Vitals: Temp Pulse Resp BP Pulse Ox 98.3 F 53 L 16 148/73 100 01/02/22 14:01 01/02/22 21:04 01/02/22 21:04 01/02/22 21:04 01/02/22 21:04 General appearance: Present: no acute distress, well-nourished, other (Dry oral mucosa, a 4 x 4 cm swelling on the right side of forehead. Nontender, soft.) - EENT Eyes: Present: PERRL, EOM intact. Absent: scleral icterus ENT: hearing intact, clear oral mucosa, dentition normal - Neck Neck: Present: supple, normal ROM - Respiratory Respiratory effort: normal Respiratory: bilateral: CTA - Cardiovascular Rhythm: regular Heart Sounds: Present: S1 & S2. Absent: gallop, systolic murmur, diastolic murmur, rub, click - Extremities Extremities: no ischemia, pulses intact, pulses symmetrical, No edema, normal temperature, normal color, Full ROM Peripheral Pulses: within normal limits - Abdominal General gastrointestinal: Present: soft, non-tender, non-distended, normal bowel sounds. Absent: mass - Integumentary Integumentary: Present: clear, warm, dry, normal turgor. Absent: rash - Musculoskeletal Musculoskeletal: strength equal bilaterally - Psychiatric Psychiatric: appropriate mood/affect, intact judgment & insight, memory intact, cooperative - Neurologic Neurologic: CNII-XII intact, no focal deficits, moves all extremities, other (Appears drowsy) Results - Labs CBC & Chem 7: 01/02/22 15:35 01/02/22 15:35 Labs: Abnormal lab results 01/02/22 01/02/22 01/02/22 Range/Units 15:35 15:35 15:35 Hgb 15.9 H (10.1-14.3) gm/dl Hct 47.8 H (30.3-42.9) % Carbon Dioxide 18 L (22-30) mmol/L Glucose 101 H (65-100) mg/dL Valproic Acid 31.3 L (50-100) ug/mL Assessment and Plan - Patient Problems (1) Seizure Current Visit: Yes Status: Acute Plan to address problem: Patient admitted and placed on telemetry. Will implement seizure precautions. Patient started on IV Keppra. We will check Dilantin levels. Valproic acid level was subtherapeutic. Consult placed to neurology for evaluation and recommendations. (2) Encephalopathy acute Current Visit: Yes Status: Acute Plan to address problem: Possibly postictal. We will monitor mental status. (3) Hypertension Current Visit: No Status: Chronic Qualifiers: Hypertension type: essential hypertension Plan to address problem: We will resume routine home medications and monitor vital signs closely. (4) Hypothyroidism Current Visit: No Status: Chronic Qualifiers: Plan to address problem: Patient currently on levothyroxine. We will continue routine home medications. (5) T2DM (type 2 diabetes mellitus) Current Visit: No Status: Chronic Plan to address problem: Patient placed on sliding scale insulin. We will monitor Accu-Cheks closely. (6) History of schizophrenia Current Visit: Yes Status: Acute Plan to address problem: Currently on Zyprexa. (7) Dehydration Current Visit: Yes Status: Acute Plan to address problem: Patient appears clinically dehydrated. Started on IV fluid normal saline. (8) DVT prophylaxis Current Visit: No Status: Acute Plan to address problem: Patient placed on subcutaneous heparin. (9) Full code status Current Visit: Yes Status: Acute Plan to address problem: Patient is full code.
[2022-01-02] MEDS ORDERED: DEXTROSE 10% *Hypoglycemia IV PRN (22:20)
[2022-01-02] MEDS: SODIUM CHLORIDE 0.9% 1000 ML 1,000 ML IV SCH (23:54)
[2022-01-03] MEDS: HEPARIN 5,000 UNIT/1 ML VIAL SUB-Q SCH ×3 (05:41→22:45)
[2022-01-03 06:20] LABS: Basophils # (Auto) 0.1 K/mm3 (0.0-0.1); Basophils % (Auto) 0.9 % (0.0-1.8); Eosinophils % (Auto) 0.6 % (0.0-4.3); Hematocrit 40.3 % (30.3-42.9); Hemoglobin 13.2 gm/dl (10.1-14.3); Lymphocytes # (Auto) 3.4 K/mm3 (1.2-5.4); Lymphocytes % (Auto) 41.4 % (13.4-35.0); Mean Corpuscular HGB Conc 33 % (30-34); Mean Corpuscular Volume 95 fl (79-97); Monocytes # (Auto) 0.4 K/mm3 (0.0-0.8); Monocytes % (Auto) 5.5 % (0.0-7.3); Red Blood Count 4.24 M/mm3 (3.65-5.03); Red Cell Distribution Width 14.8 % (13.2-15.2)
[2022-01-03 06:33] LABS: Blood Urea Nitrogen 7 mg/dL (7-17); Hemolysis Index 59
[2022-01-03 06:36] LABS: BUN/Creatinine Ratio 12
[2022-01-03 07:00] LABS: Platelet Count 149 K/mm3 (140-440)
[2022-01-03] MEDS ORDERED: GABAPENTIN 300 MG CAP PO SCH (08:00)
[2022-01-03] MEDS ORDERED: PHENYTOIN 100 MG CAPSULE.ER PO SCH (08:00)
[2022-01-03] MEDS ORDERED: GABAPENTIN 300 MG PO SCH (08:00)
[2022-01-03] MEDS: INSULIN LISPRO 100 UNIT/ML SUB-Q SCH ×4 (08:00→22:46)
--- NOTE | 2022-01-03 09:06 | Consultation ---
History of Present Illness Consult date: 01/03/22 Reason for Consult: Recurrent seizure History of present illness: Seizure Disorder History of present illness: 61-year-old -Indian female brought into the emergency room today for evaluation after having seizure activity at home. Patient was said to have had seizure activity about 3 hours prior to reporting to the emergency room. She indicated that she was hurting on the right jaw and also had a headache. She cannot recall events leading to a seizure activity. Patient lives with her son at home. Patient appears very drowsy during this history and physical and cannot give a very detailed history. According to son who was by the bedside, patient was out of seizure medications for about 2 days because she ran out of prescriptions. However medication has been refilled and patient had started taking her medication as prescribed. Work-up in the emergency room today, labs were significant for hemoglobin of 15.9 and hematocrit of 47.8. CO2 of 18. Valproic acid level was 31.3 and phenytoin level is 0.8 CT scan of the head showed no acute abnormality. Patient was loaded with Keppra in the emergency room. today she is alert oriented follow commands she is with long standing hx of seiure according to her she is taking medications at home it was difficult to get detailed hx from pt. Past History Past Medical History: diabetes, hypertension, seizures, other (Schizophrenia,Asthma) Past Surgical History: No surgical history Social history: no significant social history Family history: no significant family history Medications and Allergies Allergies Allergy/AdvReac Type Severity Reaction Status Date / Time No Known Allergies Allergy Verified 01/02/22 14:06 Home Medications Medication Instructions Recorded Confirmed Last Taken Type Ciprofloxacin HCl [Ciprofloxacin 500 mg PO Q12HR #10 tab 07/06/20 Unknown Rx TAB] Divalproex ER [Depakote ER] 1,000 mg PO BID 60 Days #60 tab 08/04/20 Unknown Rx Gabapentin 300 mg PO TID 30 Days #90 cap 08/04/20 Unknown Rx OLANzapine [ZyPREXA] 2.5 mg PO HS 30 Days #30 tab 08/04/20 Unknown Rx hydrALAZINE [Apresoline TAB] 25 mg PO Q8HR #90 tablet 08/04/20 Unknown Rx Levothyroxine [Synthroid] 100 mcg PO QAM 30 Days #30 tab 09/16/21 Unknown Rx Phenytoin [Dilantin] 100 mg PO Q8HR #90 capsule 12/02/21 Unknown Rx Divalproex ER [Depakote ER] 500 mg PO BID #60 tablet 01/02/22 Unknown Rx levETIRAcetam [Keppra] 750 mg PO BID #60 oral.liqd 01/02/22 Unknown Rx Review of Systems ROS unobtainable: due to mental status Past History Past Medical History: diabetes, hypertension, seizures, other (Schizophrenia,Asthma) Past Surgical History: No surgical history Social history: no significant social history Family history: no significant family history Medications and Allergies Allergies Allergy/AdvReac Type Severity Reaction Status Date / Time No Known Allergies Allergy Verified 01/02/22 14:06 Home Medications Medication Instructions Recorded Confirmed Last Taken Type Ciprofloxacin HCl [Ciprofloxacin 500 mg PO Q12HR #10 tab 07/06/20 Unknown Rx TAB] Divalproex ER [Depakote ER] 1,000 mg PO BID 60 Days #60 tab 08/04/20 Unknown Rx Gabapentin 300 mg PO TID 30 Days #90 cap 08/04/20 Unknown Rx OLANzapine [ZyPREXA] 2.5 mg PO HS 30 Days #30 tab 08/04/20 Unknown Rx hydrALAZINE [Apresoline TAB] 25 mg PO Q8HR #90 tablet 08/04/20 Unknown Rx Phenytoin [Dilantin] 100 mg PO Q8HR #90 capsule 09/16/21 Unknown Rx Divalproex ER [Depakote ER] 500 mg PO BID #60 tablet 01/02/22 Unknown Rx levETIRAcetam [Keppra] 750 mg PO BID #60 oral.liqd 01/02/22 Unknown Rx Levothyroxine [Synthroid] 150 mcg PO QAM 01/03/22 01/03/22 Unknown History amLODIPine [Norvasc] 10 mg PO DAILY 01/03/22 01/03/22 Unknown History Active Meds: Active Medications Acetaminophen (Acetaminophen 325 Mg Tab) 650 mg PO Q4H PRN PRN Reason: Pain MILD(1-3)/Fever >100.5/JORGE Amlodipine Besylate (Amlodipine 10 Mg Tab) 10 mg PO DAILY SONG Dextrose (Dextrose 10% *Hypoglycemia) 0 ml IV DIRECT PRN; Protocol PRN Reason: Hypoglycemia Divalproex Sodium (Divalproex Er 500 Mg Tab) 1,000 mg PO BID SONG Gabapentin (Gabapentin 300 Mg Cap) [address] [facility] Heparin Sodium (Porcine) (Heparin 5,000 Unit/1 Ml Vial) 5,000 unit SUB-Q Q8HR [facility] Last Admin: 01/03/22 05:41 Dose: 5,000 unit Hydralazine HCl (Hydralazine 25 Mg Tab) [address] [facility] Sodium Chloride (Nacl 0.9% 1000 Ml) 1,000 mls @ 125 mls/hr IV DIRECT SONG Last Admin: 01/02/22 23:54 Dose: 125 mls/hr Levetiracetam 500 mg/ Dextrose 105 mls @ 400 mls/hr IV Q12HR [facility] Insulin Human Lispro (Insulin Lispro 100 Unit/Ml) 0 unit SUB-Q ACHS SONG; Protocol Levothyroxine Sodium (Levothyroxine 150 Mcg Tab) 150 mcg PO DAILY@0600 [facility] Magnesium Hydroxide (Magnesium Hydroxide (Mom) Oral Liqd Udc) 30 ml PO Q4H PRN PRN Reason: Constipation Morphine Sulfate (Morphine 2 Mg/1 Ml Inj) 2 mg IV Q4H PRN PRN Reason: Pain, Moderate (4-6) Morphine Sulfate (Morphine 4 Mg/1 Ml Inj) 4 mg IV Q4H PRN PRN Reason: Pain , Severe (7-10) Olanzapine (Olanzapine 2.5 Mg Tab) 2.5 mg PO HS SONG Ondansetron HCl (Ondansetron 4 Mg/2 Ml Inj) 4 mg IV Q8H PRN PRN Reason: Nausea And Vomiting Phenytoin (Phenytoin 100 Mg Capsule.Er) [address] [facility] Sodium Chloride (Sodium Chloride 0.9% 10 Ml Flush Syringe) [address] [facility] Sodium Chloride (Sodium Chloride 0.9% 10 Ml Flush Syringe) 10 ml IV PRN PRN PRN Reason: LINE FLUSH Physical Examination - Vital Signs Vital Signs: Vital Signs BP 126/94 01/02/22 04:56 - Constitutional General appearance: comfortable - EENT EENT: Present: PERRL, mucous membranes moist - Respiratory Respiratory: Present: lungs clear, rhonchi - Cardiovascular Cardiovascular: Present: regular rate, normal S1, normal S2 Extremities: Present: no peripheral edema bilatateraly, no clubbing, cyanosis - Gastrointestinal Gastrointestinal: Present: normoactive bowel sounds - Integumentary Integumentary: Present: normal - Neurologic Cranial nerve examination: PERRL, EOMI, intact Speech examination: intact Sensorimotor examination: intact Detailed motor examination: grossly full strength in Results - Laboratory Findings CBC and BMP: 01/03/22 05:58 01/03/22 05:58 Abnormal Lab Findings: Abnormal Labs 01/02/22 01/02/22 01/02/22 15:35 15:35 15:35 Hgb 15.9 H Hct 47.8 H Lymph % (Auto) Carbon Dioxide 18 L Glucose 101 H POC Glucose Phenytoin Valproic Acid 31.3 L 01/02/22 01/03/22 01/03/22 15:35 05:58 08:01 Hgb Hct Lymph % (Auto) 41.4 H Carbon Dioxide Glucose POC Glucose 58 L Phenytoin 0.8 L Valproic Acid Assessment and Plan Assessment and Plan 61-year-old -Indian female brought into the emergency room today for evaluation after having seizure activity at home. Patient was said to have had seizure activity about 3 hours prior to reporting to the emergency room. She indicated that she was hurting on the right jaw and also had a headache. She cannot recall events leading to a seizure activity. Patient lives with her son at home. - Patient Problems # Recurrent seizure at home Patient admitted and placed on telemetry. Will implement seizure precautions. Patient started on IV Keppra can change to po 750 mg bid stop Dilantin her level was 0.8 !!! maintain Valproic acid ER 1000 bid EEG MRI with gd seizure precaution. -neurology follow up # Encephalopathy acute/ resolved -Possibly postictal. - posibly medication effect she is on multiple medications -will change neurontine to 300 mg qhs # Hypertension -We will resume routine home medications and monitor vital signs closely. # Hypothyroidism -Patient currently on levothyroxine. We will continue routine home medications. # T2DM (type 2 diabetes mellitus) -Patient placed on sliding scale insulin. We will monitor Accu-Cheks closely. # History of schizophrenia Currently on Zyprexa. # Dehydration -Patient appears clinically dehydrated. Started on IV fluid normal saline. # DVT prophylaxis -Patient placed on subcutaneous heparin. # Full code status -Patient is full code.
[2022-01-03] MEDS ORDERED: LEVOTHYROXINE 100 MCG TAB PO SCH (10:00)
[2022-01-03] MEDS: levETIRAcetam 500 MG in DEXTROSE 5% IN WATER 100 ML IV SCH ×2 (11:00→22:44)
[2022-01-03] MEDS: DIVALPROEX ER 500 MG TAB PO SCH ×2 (11:02→22:44)
[2022-01-03] MEDS: hydrALAZINE 25 MG TAB PO SCH ×3 (11:11→22:44)
[2022-01-03] MEDS: amLODIPine 10 MG TAB PO SCH (11:12)
--- NOTE | 2022-01-03 13:13 | Progress Note ---
Assessment and Plan 61-year-old -[place] female brought into the emergency room for evaluation after having seizure activity at home. Patient was said to have had seizure activity about 3 hours prior to reporting to the emergency room. According to son who was by the bedside, patient was out of seizure medications for about 2 days because she ran out of prescriptions. labs were significant for hemoglobin of 15.9 and hematocrit of 47.8. CO2 of 18. Valproic acid level and Dilantin level were subtherapeutic. CT scan of the head showed no acute abnormality. Patient was loaded with Keppra in the emergency room and admitted for further management. Assessment and plan: --Breakthrough seizure Likely due to medication noncompliance (patient was out of medications for last 2 days before admission) Patient admitted and placed on telemetry. Continue seizure precautions. Patient started on IV Keppra. Valproic acid level was subtherapeutic. Dilantin level is subtherapeutic Consult placed to neurology for evaluation and recommendations. -- Encephalopathy acute Possibly postictal. We will monitor mental status. -- Hypertension We will resume routine home medications and monitor vital signs closely. -- Hypothyroidism Patient currently on levothyroxine. We will continue routine home medications. -- T2DM (type 2 diabetes mellitus) Patient placed on sliding scale insulin. We will monitor Accu-Cheks closely. -- History of schizophrenia Currently on Zyprexa. -- Dehydration Patient appears clinically dehydrated. Started on IV fluid normal saline. -- DVT prophylaxis Patient placed on subcutaneous heparin. -- Full code status Disposition: Patient remains very confused, likely postictal. Neuro evaluation pending, continue IV Keppra and routine home medications for seizure for now. Reassessment mental status stabilizes. Discharge planning pending on neuro recommendation and stabilization of patient's mental status. Subjective Date of service: 01/03/22 Interval history: Patient seen and examined. Medical records and medication list reviewed. No acute event overnight noted by the RN. Patient remains confused, unable to provide any history Objective - Exam Narrative Exam: General appearance: Present: no acute distress, well-nourished, other (Dry oral mucosa, a 4 x 4 cm swelling on the right side of forehead. Nontender, soft.) - EENT Eyes: Present: PERRL, EOM intact. Absent: scleral icterus ENT: hearing intact, clear oral mucosa, dentition normal - Neck Neck: Present: supple, normal ROM - Respiratory Respiratory effort: normal Respiratory: bilateral: CTA - Cardiovascular Rhythm: regular Heart Sounds: Present: S1 & S2. Absent: gallop, systolic murmur, diastolic murmur, rub, click - Extremities Extremities: no ischemia, pulses intact, pulses symmetrical, No edema, normal temperature, normal color, Full ROM Peripheral Pulses: within normal limits - Abdominal General gastrointestinal: Present: soft, non-tender, non-distended, normal bowel sounds. Absent: mass - Integumentary Integumentary: Present: clear, warm, dry, normal turgor. Absent: rash - Musculoskeletal Musculoskeletal: strength equal bilaterally - Psychiatric Psychiatric: no appropriate mood/affect, no intact judgment & insight, - Neurologic Neurologic: CNII-XII intact, no focal deficits, moves all extremities, other (Appears drowsy) - Constitutional Vitals: Vital Signs - 12hr 01/03/22 01/03/22 01/03/22 01:50 02:30 03:16 Temperature 98 F 98.4 F Pulse Rate 64 42 L Respiratory 16 16 Rate Blood Pressure 151/73 Blood Pressure 153/84 [Left] O2 Sat by Pulse 98 100 100 Oximetry 01/03/22 01/03/22 07:59 11:39 Temperature 98.3 F 98.3 F Pulse Rate 63 66 Respiratory 20 20 Rate Blood Pressure 102/47 133/72 Blood Pressure [Left] O2 Sat by Pulse 99 100 Oximetry - Labs CBC & Chem 7: 01/03/22 05:58 01/03/22 05:58 Labs: Abnormal lab results 01/02/22 01/02/22 01/02/22 Range/Units 15:35 15:35 15:35 Hgb 15.9 H (10.1-14.3) gm/dl Hct 47.8 H (30.3-42.9) % Lymph % (Auto) (13.4-35.0) % Carbon Dioxide 18 L (22-30) mmol/L Glucose 101 H (65-100) mg/dL POC Glucose (70-105) mg/dL Phenytoin (10.0-20.0) ug/mL Valproic Acid 31.3 L (50-100) ug/mL 01/02/22 01/03/22 01/03/22 Range/Units 15:35 05:58 08:01 Hgb (10.1-14.3) gm/dl Hct (30.3-42.9) % Lymph % (Auto) 41.4 H (13.4-35.0) % Carbon Dioxide (22-30) mmol/L Glucose (65-100) mg/dL POC Glucose 58 L (70-105) mg/dL Phenytoin 0.8 L (10.0-20.0) ug/mL Valproic Acid (50-100) ug/mL
[2022-01-03] MEDS: GABAPENTIN 300 MG CAP PO SCH (22:45)
[2022-01-03] MEDS: SODIUM CHLORIDE 0.9% 1000 ML 1,000 ML IV SCH (22:57)
[2022-01-04] MEDS: hydrALAZINE 25 MG TAB PO SCH ×3 (06:16→22:41)
[2022-01-04] MEDS: SODIUM CHLORIDE 0.9% 1000 ML 1,000 ML IV SCH (06:17)
[2022-01-04] MEDS: HEPARIN 5,000 UNIT/1 ML VIAL SUB-Q SCH ×3 (06:17→22:40)
[2022-01-04] MEDS: LEVOTHYROXINE 150 MCG TAB PO SCH (06:17)
--- NOTE | 2022-01-04 08:58 | Progress Note ---
Assessment and Plan Assessment and plan: 61-year-old -[place] female brought into the emergency room for evaluation after having seizure activity at home. Patient was said to have had seizure activity about 3 hours prior to reporting to the emergency room. According to son who was by the bedside, patient was out of seizure medications for about 2 days because she ran out of prescriptions. labs were significant for hemoglobin of 15.9 and hematocrit of 47.8. CO2 of 18. Valproic acid level and Dilantin level were subtherapeutic. CT scan of the head showed no acute abnormality. Patient was loaded with Keppra in the emergency room and admitted for further management. Assessment and plan: --Breakthrough seizure Likely due to medication noncompliance (patient was out of medications for last 2 days before admission) Patient admitted and placed on telemetry. Continue seizure precautions. Patient started on IV Keppra. Valproic acid level was subtherapeutic. Dilantin level is subtherapeutic Consult placed to neurology for evaluation and recommendations. -- Encephalopathy acute Possibly postictal. We will monitor mental status. -- Hypertension We will resume routine home medications and monitor vital signs closely. -- Hypothyroidism Patient currently on levothyroxine. We will continue routine home medications. -- T2DM (type 2 diabetes mellitus) Patient placed on sliding scale insulin. We will monitor Accu-Cheks closely. -- History of schizophrenia Currently on Zyprexa. -- Dehydration Patient appears clinically dehydrated. Started on IV fluid normal saline. -- DVT prophylaxis Patient placed on subcutaneous heparin. -- Full code status Disposition: Patient remains very confused, likely postictal. Neuro evaluation pending, continue IV Keppra and routine home medications for seizure for now. Reassessment mental status stabilizes. Discharge planning pending on neuro recommendation and stabilization of patient's mental status. History Interval history: Seen and examined the patient at the bedside Patient's chart and medications reviewed Patient is confused intermittently No new overnight events reported by the nursing Vital signs noted Hospitalist Physical - Constitutional Vitals: Temp Pulse Resp BP Pulse Ox 97.8 F 63 20 109/58 97 01/04/22 07:00 01/04/22 07:00 01/04/22 07:00 01/04/22 07:00 01/04/22 07:00 General appearance: Present: no acute distress, well-nourished, other (Dry oral mucosa, a 4 x 4 cm swelling on the right side of forehead. Nontender, soft.) - EENT Eyes: Present: PERRL, EOM intact - Neck Neck: Present: supple, normal ROM - Respiratory Respiratory effort: normal Respiratory: bilateral: diminished, negative: rales, rhonchi, wheezing - Cardiovascular Rhythm: regular Heart Sounds: Present: S1 & S2 - Extremities Extremities: no ischemia, No edema - Abdominal General gastrointestinal: soft, non-tender, non-distended, normal bowel sounds - Integumentary Integumentary: Present: clear, warm - Psychiatric Psychiatric: appropriate mood/affect, cooperative - Neurologic Neurologic: CNII-XII intact, moves all extremities Results - Labs CBC & Chem 7: 01/03/22 05:58 01/03/22 05:58 Labs: Laboratory Last Values WBC 8.1 K/mm3 (4.5-11.0) 01/03/22 05:58 RBC 4.24 M/mm3 (3.65-5.03) 01/03/22 05:58 Hgb 13.2 gm/dl (10.1-14.3) 01/03/22 05:58 Hct 40.3 % (30.3-42.9) D 01/03/22 05:58 MCV 95 fl (79-97) 01/03/22 05:58 MCH 31 pg (28-32) 01/03/22 05:58 MCHC 33 % (30-34) 01/03/22 05:58 RDW 14.8 % (13.2-15.2) 01/03/22 05:58 Plt Count 149 K/mm3 (140-440) 01/03/22 05:58 Lymph % (Auto) 41.4 % (13.4-35.0) H 01/03/22 05:58 [place] % (Auto) 5.5 % (0.0-7.3) 01/03/22 05:58 Eos % (Auto) 0.6 % (0.0-4.3) 01/03/22 05:58 Baso % (Auto) 0.9 % (0.0-1.8) 01/03/22 05:58 Lymph # (Auto) 3.4 K/mm3 (1.2-5.4) 01/03/22 05:58 [place] # (Auto) 0.4 K/mm3 (0.0-0.8) 01/03/22 05:58 Eos # (Auto) 0.0 K/mm3 (0.0-0.4) 01/03/22 05:58 Baso # (Auto) 0.1 K/mm3 (0.0-0.1) 01/03/22 05:58 Seg Neutrophils % 51.6 % (40.0-70.0) 01/03/22 05:58 Seg Neutrophils # 4.2 K/mm3 (1.8-7.7) 01/03/22 05:58 Sodium 137 mmol/L (137-145) 01/03/22 05:58 Potassium 3.8 mmol/L (3.6-5.0) 01/03/22 05:58 Chloride 102.8 mmol/L (98-107) 01/03/22 05:58 Carbon Dioxide 23 mmol/L (22-30) 01/03/22 05:58 Anion Gap 15 mmol/L 01/03/22 05:58 BUN 7 mg/dL (7-17) 01/03/22 05:58 Creatinine 0.6 mg/dL (0.6-1.2) 01/03/22 05:58 Estimated GFR > 60 ml/min 01/03/22 05:58 BUN/Creatinine Ratio 12 % 01/03/22 05:58 Glucose 80 mg/dL (65-100) 01/03/22 05:58 POC Glucose 98 mg/dL (70-105) 01/03/22 20:59 Calcium 9.0 mg/dL (8.4-10.2) 01/03/22 05:58 Magnesium 2.10 mg/dL (1.7-2.3) 01/02/22 15:35 Phenytoin 0.8 ug/mL (10.0-20.0) L 01/02/22 15:35 Valproic Acid 31.3 ug/mL (50-100) L 01/02/22 15:35 Coe/IV: Voiding Method External Female Catheter Active Medications - Current Medications Current Medications: Generic Name Dose Route Start Last Admin Trade Name Freq PRN Reason Stop Dose Admin Acetaminophen 650 mg 01/02/22 22:08 Acetaminophen 325 Mg Tab PO Q4H PRN Pain MILD(1-3)/Fever >100.5/JORGE Amlodipine Besylate 10 mg 01/03/22 10:00 01/03/22 11:12 Amlodipine 10 Mg Tab PO 10 mg DAILY SONG Administration Dextrose 0 ml 01/02/22 22:20 Dextrose 10% *Hypoglycemia IV DIRECT PRN Hypoglycemia Protocol Divalproex Sodium 1,000 mg 01/03/22 10:00 01/03/22 22:44 Divalproex Er 500 Mg Tab PO 1,000 mg BID SONG Administration Gabapentin 300 mg 01/03/22 22:00 01/03/22 22:45 Gabapentin 300 Mg Cap PO 300 mg QHS SONG Administration Heparin Sodium (Porcine) 5,000 unit 01/03/22 06:00 01/04/22 06:17 Heparin 5,000 Unit/1 Ml Vial SUB-Q 5,000 unit Q8HR SONG Administration Hydralazine HCl 25 mg 01/03/22 09:00 01/04/22 06:16 Hydralazine 25 Mg Tab PO Not Given Q8HR [facility] Sodium Chloride 1,000 mls @ 125 mls/hr 01/02/22 22:15 01/04/22 06:17 Nacl 0.9% 1000 Ml IV 125 mls/hr DIRECT SONG Administration Insulin Human Lispro 0 unit 01/03/22 07:30 01/03/22 22:46 Insulin Lispro 100 Unit/Ml SUB-Q Not Given ACHS [facility] Protocol Levetiracetam 750 mg 01/04/22 10:00 Levetiracetam 500 Mg Tab PO BID [facility] Levothyroxine Sodium 150 mcg 01/04/22 06:00 01/04/22 06:17 Levothyroxine 150 Mcg Tab PO 150 mcg DAILY@0600 SONG Administration Magnesium Hydroxide 30 ml 01/02/22 22:08 Magnesium Hydroxide (Mom) Oral Liqd Udc PO Q4H PRN Constipation Morphine Sulfate 2 mg 01/02/22 22:08 Morphine 2 Mg/1 Ml Inj IV Q4H PRN Pain, Moderate (4-6) Morphine Sulfate 4 mg 01/02/22 22:08 Morphine 4 Mg/1 Ml Inj IV Q4H PRN Pain , Severe (7-10) Olanzapine 2.5 mg 01/03/22 22:00 01/03/22 22:44 Olanzapine 2.5 Mg Tab PO 2.5 mg HS SONG Administration Ondansetron HCl 4 mg 01/02/22 22:08 Ondansetron 4 Mg/2 Ml Inj IV Q8H PRN Nausea And Vomiting Sodium Chloride 10 ml 01/03/22 10:00 01/03/22 22:46 Sodium Chloride 0.9% 10 Ml Flush Syringe IV 10 ml BID SONG Administration Sodium Chloride 10 ml 01/02/22 22:08 Sodium Chloride 0.9% 10 Ml Flush Syringe IV PRN PRN LINE FLUSH
[2022-01-04] MEDS: INSULIN LISPRO 100 UNIT/ML SUB-Q SCH ×4 (10:04→22:42)
[2022-01-04] MEDS: DIVALPROEX ER 500 MG TAB PO SCH ×2 (10:08→22:41)
[2022-01-04] MEDS: levETIRAcetam 500 MG TAB PO SCH ×2 (10:09→22:40)
[2022-01-04] MEDS: amLODIPine 10 MG TAB PO SCH (10:09)
--- NOTE | 2022-01-04 12:26 | Progress Note ---
Assessment and Plan Assessment and Plan 61-year-old -[place] female brought into the emergency room today for evaluation after having seizure activity at home. Patient was said to have had seizure activity about 3 hours prior to reporting to the emergency room. She indicated that she was hurting on the right jaw and also had a headache. She cannot recall events leading to a seizure activity. Patient lives with her son at home. - Patient Problems # Recurrent seizure at home Patient admitted and placed on telemetry. Will implement seizure precautions. Patient started on IV Keppra can change to po 750 mg bid stop Dilantin her level was 0.8 !!! maintain Valproic acid ER 1000 bid EEG is pending MRI with gd is pending seizure precaution. -neurology follow up # Encephalopathy acute/ resolved -Possibly postictal. - posibly medication effect she is on multiple medications -will change neurontine to 300 mg qhs # Hypertension -We will resume routine home medications and monitor vital signs closely. # Hypothyroidism -Patient currently on levothyroxine. We will continue routine home medications. # T2DM (type 2 diabetes mellitus) -Patient placed on sliding scale insulin. We will monitor Accu-Cheks closely. # History of schizophrenia Currently on Zyprexa. # Dehydration -Patient appears clinically dehydrated. Started on IV fluid normal saline. # DVT prophylaxis -Patient placed on subcutaneous heparin. # Full code status -Patient is full code. Subjective Date of service: 01/04/22 Interval history: alert interactive no seizure is reported EEG is pending MRI brain is pending Objective - Vital Sign Vital Signs - 12hr 01/04/22 01/04/22 01/04/22 03:17 06:00 06:16 Temperature 98.3 F Pulse Rate 65 Respiratory 18 Rate Blood Pressure 97/55 97/55 Blood Pressure [Right] O2 Sat by Pulse 98 100 Oximetry 01/04/22 01/04/22 07:00 10:09 Temperature 97.8 F Pulse Rate 63 72 Respiratory 20 Rate Blood Pressure Blood Pressure 109/58 [Right] O2 Sat by Pulse 97 Oximetry - General Apperance Constitutional: comfortable - EENT EENT: PERRL, mucous membranes moist - Respiratory Respiratory: lungs clear, rhonchi - Cardiovascular Cardiovascular: regular rate, normal S1, normal S2 Extremities: no peripheral edema bilat, no clubbing, cyanosis - Gastrointestinal Gastrointestinal: normoactive bowel sounds - Integumentary Integumentary: normal - Neurologic Cranial nerve examination: PERRL, EOMI, intact Speech examination: intact Detailed motor examination: grossly full strength in - Laboratory Findings CBC and BMP: 01/03/22 05:58 01/03/22 05:58 Abnormal Lab Findings: Abnormal Labs 01/02/22 01/02/22 01/02/22 15:35 15:35 15:35 Hgb 15.9 H Hct 47.8 H Lymph % (Auto) Carbon Dioxide 18 L Glucose 101 H POC Glucose Phenytoin Valproic Acid 31.3 L 01/02/22 01/03/22 01/03/22 15:35 05:58 08:01 Hgb Hct Lymph % (Auto) 41.4 H Carbon Dioxide Glucose POC Glucose 58 L Phenytoin 0.8 L Valproic Acid 01/03/22 11:37 Hgb Hct Lymph % (Auto) Carbon Dioxide Glucose POC Glucose 58 L Phenytoin Valproic Acid
[2022-01-04] MEDS: GABAPENTIN 300 MG CAP PO SCH (22:41)
[2022-01-05] MEDS: hydrALAZINE 25 MG TAB PO SCH ×2 (06:33→17:33)
[2022-01-05] MEDS: HEPARIN 5,000 UNIT/1 ML VIAL SUB-Q SCH ×2 (06:33→17:33)
[2022-01-05] MEDS: LEVOTHYROXINE 150 MCG TAB PO SCH (06:34)
[2022-01-05] MEDS: INSULIN LISPRO 100 UNIT/ML SUB-Q SCH ×3 (08:16→17:33)
[2022-01-05] MEDS: amLODIPine 10 MG TAB PO SCH (09:21)
[2022-01-05] MEDS: levETIRAcetam 500 MG TAB PO SCH (09:21)
[2022-01-05] MEDS: DIVALPROEX ER 500 MG TAB PO SCH (09:21)
[2022-01-05 09:22] VITALS: BP 112/77
--- NOTE | 2022-01-05 11:24 | Progress Note ---
Assessment and Plan Assessment and Plan 61-year-old -[place] female brought into the emergency room today for evaluation after having seizure activity at home. Patient was said to have had seizure activity about 3 hours prior to reporting to the emergency room. She indicated that she was hurting on the right jaw and also had a headache. She cannot recall events leading to a seizure activity. Patient lives with her son at home. - Patient Problems # Recurrent seizure at home Patient admitted and placed on telemetry. Will implement seizure precautions. Patient started on IV Keppra can change to po 750 mg bid stop Dilantin her level was 0.8 !!! maintain Valproic acid ER 1000 bid EEG will cancel not done to date MRI with gd cancel if not done seizure precaution. -neurology follow up # Encephalopathy acute/ resolved -Possibly postictal. - posibly medication effect she is on multiple medications -will change neurontine to 300 mg qhs # Hypertension -We will resume routine home medications and monitor vital signs closely. # Hypothyroidism -Patient currently on levothyroxine. We will continue routine home medications. # T2DM (type 2 diabetes mellitus) -Patient placed on sliding scale insulin. We will monitor Accu-Cheks closely. # History of schizophrenia Currently on Zyprexa. # Dehydration -Patient appears clinically dehydrated. Started on IV fluid normal saline. # DVT prophylaxis -Patient placed on subcutaneous heparin. # Full code status -Patient is full code. Plan 1- Doing well 2- cancel MRI and EEG 3- check valproic acid level 4- follow up with neurology and psychiatry will sign off Subjective Date of service: 01/05/22 Interval history: alert interactive no seizure is reported EEG is pending MRI brain is pendingas well as EEG she is doing well walking around in the room Objective - Vital Sign Vital Signs - 12hr 01/05/22 01/05/22 01/05/22 03:28 06:33 07:57 Temperature 98.3 F 97.9 F Pulse Rate 66 66 71 Respiratory 14 18 Rate Blood Pressure 113/68 112/77 O2 Sat by Pulse 95 99 Oximetry - General Apperance Constitutional: comfortable - EENT EENT: PERRL, mucous membranes moist - Respiratory Respiratory: lungs clear, rhonchi - Cardiovascular Cardiovascular: regular rate, normal S1, normal S2 Extremities: no peripheral edema bilat, no clubbing, cyanosis - Gastrointestinal Gastrointestinal: normoactive bowel sounds - Integumentary Integumentary: normal - Neurologic Cranial nerve examination: PERRL, EOMI, intact Speech examination: intact Detailed motor examination: grossly full strength in - Laboratory Findings CBC and BMP: 01/03/22 05:58 01/03/22 05:58 Abnormal Lab Findings: Abnormal Labs 01/02/22 01/02/22 01/02/22 15:35 15:35 15:35 Hgb 15.9 H Hct 47.8 H Lymph % (Auto) Carbon Dioxide 18 L Glucose 101 H POC Glucose Phenytoin Valproic Acid 31.3 L 01/02/22 01/03/22 01/03/22 15:35 05:58 08:01 Hgb Hct Lymph % (Auto) 41.4 H Carbon Dioxide Glucose POC Glucose 58 L Phenytoin 0.8 L Valproic Acid 01/03/22 01/04/22 11:37 08:17 Hgb Hct Lymph % (Auto) Carbon Dioxide Glucose POC Glucose 58 L 45 L Phenytoin Valproic Acid
--- NOTE | 2022-01-05 13:36 | Discharge Summary ---
Providers - Providers Date of Admission: 01/02/22 22:08 Date of discharge: 01/05/22 Attending physician: MARYAM LOPEZ 01/02/22 22:08 Consult to Physician [CONS] Routine Comment: Consulting Provider: NAVDEEP HESTER Physician Instructions: Reason For Exam: Seizure disorder 01/03/22 07:56 Physical Therapy Evaluation and Treat [CONS] Routine Comment: Reason For Exam: Debility Primary care physician: [facility] [employer] Hospitalization Condition: Stable Disposition: 06 HOME HEALTH CARE SERVICE Core Measure Documentation - Palliative Care Palliative Care/ Comfort Measures: Not Applicable - Core Measures Any of the following diagnoses?: none Exam - Constitutional Vitals: Temp Pulse Resp BP Pulse Ox 97.9 F 71 18 112/77 99 01/05/22 07:57 01/05/22 07:57 01/05/22 07:57 01/05/22 07:57 01/05/22 07:57 General appearance: Present: no acute distress, well-nourished - EENT Eyes: Present: PERRL, EOM intact - Neck Neck: Present: supple, normal ROM - Respiratory Respiratory effort: normal Respiratory: bilateral: diminished, negative: rales, rhonchi, wheezing - Cardiovascular Rhythm: regular Heart Sounds: Present: S1 & S2 - Extremities Extremities: no ischemia, No edema - Abdominal General gastrointestinal: Present: soft, non-tender, non-distended, normal bowel sounds - Integumentary Integumentary: Present: clear, warm - Musculoskeletal Musculoskeletal: strength equal bilaterally, generalized weakness - Psychiatric Psychiatric: appropriate mood/affect, cooperative - Neurologic Neurologic: moves all extremities Plan Activity: advance as tolerated, no driving until cleared by PCP, fall precautions, other (Seizure precautions) Diet: other (Cardiac diet) Special Instructions: physical therapy (Home physical therapy) Additional Instructions: Fall precautions, seizure precautions. Do not drive or operate heavy machinery unless cleared by neurologist. If you have worsening symptoms, contact MD or go to the nearest emergency room as needed. Advised to follow-up with primary care physician in 5 to 7 days. Advised to follow private neurologist in 1 to 2 weeks Follow up with: JULIA GRAY MD [Staff Physician] - 3-5 Days (Dr. Gray is a neurologist. Please follow-up with him for further evaluation if you do not already have a neurologist) PRIMARY CAREMD [Primary Care Provider] - 3-5 Days Prescriptions: amLODIPine 10 mg PO DAILY #30 tab hydrALAZINE [Apresoline TAB] 25 mg PO Q8HR #90 tablet Divalproex ER [Depakote ER] 3 tab PO BID #180 tablet Gabapentin 300 mg PO QHS #30 capsule levETIRAcetam [Keppra] 750 mg PO BID #60 oral.liqd Levothyroxine [Synthroid] 150 mcg PO DAILY@0600 #30 tablet OLANzapine [ZyPREXA] 2.5 mg PO HS #14 tablet
== END 2022-01-05 18:31 | disposition home health service (06) | DRG 101 ==
LOC: ED 14:00 → 4A 22:08
PROVIDERS: ADMIT Internal Medicine Geriatric Medicine; ATTEND Internal Medicine
DX: G40.901 Epilepsy, unspecified, not intractable, with status epilepticus (principal); E86.0 Dehydration; E11.9 Type 2 diabetes mellitus without complications; I10 Essential (primary) hypertension; F20.9 Schizophrenia, unspecified; J45.909 Unspecified asthma, uncomplicated; S00.83XA Contusion of other part of head, initial encounter; X58.XXXA Exposure to other specified factors, initial encounter; Y93.89 Activity, other specified; Y92.89 Other specified places as the place of occurrence of the external cause; Y99.8 Other external cause status; E03.9 Hypothyroidism, unspecified
CPT/HCPCS: 36415; 70450; 70486; 80048; 80164; 80185; 82962; 83735; 85025; 95819; G0378; J3490; J7060; Q0162; J1644; J1953; J2060; J7030